=== PATIENT | female | born 1965 | race Caucasian/White ===

== ENCOUNTER 2021-01-10 17:49 | Emergency (ER) | payer OTHER ==
[2021-01-10 18:43] LABS: BILIRUBIN NEGATIVE (NEGATIVE); BLOOD NEGATIVE Ery/uL (NEGATIVE); CLARITY CLEAR (CLEAR); COLOR YELLOW (YELLOW); GLUCOSE (U) NORMAL (NORMAL); LEUKOCYTES NEGATIVE Leu/uL (NEGATIVE); NITRITE NEGATIVE (NEGATIVE); PROTEIN NEGATIVE (NEGATIVE); SPECIFIC GRAVITY <=1.005 (1.001-1.030); UROBILINOGEN 0.2 mg/dL (0.2-1.0); pH 6.5 (5.0-9.0)
[2021-01-10 19:05] LABS: BASOPHIL 0.9 % (0-2); EOSINOPHIL 3.2 % (0-5); HCT 36.1 % (37.0-47.0); HGB 12.2 g/dl (12.5-16.0); LYMPHOCYTE 44.9 % (15-48); MCHC 33.8 g/dL (32.0-36.0); MCV 91.6 fL (78.0-100.0); MONOCYTE 6.8 % (0-12); MPV 9.6 fL (6.0-9.5); NEUTROPHIL 44.1 % (41-80); NRBC 0; PLT 224 K/uL (150-400); RBC 3.94 M/uL (4.20-5.40); RDW 13.1 % (11.5-14.0); WBC 6.8 K/uL (4.0-10.5)
[2021-01-10 19:21] LABS: ALBUMIN 3.6 g/dL (3.4-5.0); BILIRUBIN - TOTAL 0.3 mg/dL (0.2-1.0); BUN/CREAT RATIO (CALC) 28.6 RATIO; CREATININE 0.63 mg/dL (0.51-0.95); GLOBULIN (CALCULATION) 3.6 g/dL; POTASSIUM 3.8 mmol/L (3.5-5.1); TOTAL PROTEIN 7.2 g/dL (6.4-8.2)
[2021-01-10] MEDS ORDERED: ZPAK PO (19:56)
== END 2021-01-10 20:30 | disposition home or self-care (01) ==
LOC: FER 17:49
PROVIDERS: Nurse Practitioner Family
DX: J01.90 Acute sinusitis, unspecified (principal); Z88.0 Allergy status to penicillin
CPT/HCPCS: 36415; 70450; 80053; 81003; 85025